=== PATIENT | female | born 1990 | race African-American/Black ===

== ENCOUNTER 2020-10-08 10:48 | Emergency (ER) | payer MEDICAID ==
[~2020-10-08] VITALS: Ht 170.2 cm; Wt 54.4 kg
[2020-10-08 11:02] VITALS: BP 164/113
[2020-10-08 13:14] VITALS: BP 151/108
== END 2020-10-08 13:14 | disposition home or self-care (01) ==
LOC: MED 10:48
DX: S09.90XA Unspecified injury of head, initial encounter (principal); F10.129 Alcohol abuse with intoxication, unspecified; R11.2 Nausea with vomiting, unspecified; M54.2 Cervicalgia; W19.XXXA Unspecified fall, initial encounter; Y93.89 Activity, other specified; Y92.89 Other specified places as the place of occurrence of the external cause; Y99.8 Other external cause status
CPT/HCPCS: 70450; 70486; 72125; 81002; 81025; 99285